=== PATIENT | male | born 1965 | race African-American/Black ===

== ENCOUNTER 2018-11-16 11:14 | Emergency (ER) | payer MEDICAID ==
[~2018-11-16] VITALS: Ht 170.2 cm; Wt 59.0 kg
[2018-11-16] MEDS ORDERED: ANTIVIRAL (11:39)
[2018-11-16] MEDS ORDERED: HYDROCODONE/ACETAMINOPHEN 5/325MG TABLET PO ONE (15:00)
[2018-11-16 15:29] VITALS: BP 130/80
== END 2018-11-16 15:30 | disposition home or self-care (01) ==
LOC: ER 11:17
DX: K02.9 Dental caries, unspecified (principal); K08.89 Other specified disorders of teeth and supporting structures; B20 Human immunodeficiency virus [HIV] disease
CPT/HCPCS: 99283